=== PATIENT | female | born 1965 | race Caucasian/White ===

== ENCOUNTER 2022-03-13 03:28 | Emergency (ER) | payer SELFPAY ==
[2022-03-13 03:43] VITALS: BP 178/104; PULSE 79; RESP 16; TEMP 36.6; O2SAT 98; BMI 30.5
--- NOTE | 2022-03-13 04:15 | ED_ITS ---
HPI - General Adult General Chief complaint: High Blood Pressure Stated complaint: high blood pressure Time Seen by Provider: 03/13/22 03:58 History of Present Illness HPI narrative: 56-year-old woman presenting to the emergency department with control concern of other high blood pressures. Was seen recently in urgent care. I do review all labs and EKG of that visit all of which were unremarkable. She did have a blood pressure systolic of around 210/140 at that time. Was initiated on lisinopril. Does not have a diagnosis of diabetes and per my review of labs did not have any renal problems. Today she happened to measure blood pressure at home noting a 164 over 90s. This got her alarmed and she called in. She thinks that maybe she was over-thinking it when she was answering triaged questions that sometimes she is short of breath but she was answering that question related to a general exercise intolerance. She does have a little headache indicating this would be the usual source of her headaches. This is posterior head and sort of forehead. No visual disturbance no nausea. Has also recently developed a rash over her face. Unclear what might have caused it. Does not endorse any rheumatological or connective tissue diseases in her family. Was initiated on triamcinolone lotion. She has also had a spot behind her right knee that has been inflamed. Related Data Previous Rx's Medication Instructions Recorded lisinopril 10 mg tablet 10 mg PO QDAY 30 days #30 tabs 03/11/22 triamcinolone acetonide 0.025 % 1 applic topical BID 7 days #60 mL 03/11/22 lotion Allergies Allergy/AdvReac Type Severity Reaction Status Date / Time Penicillins Allergy Mild Itch and Verified 03/11/22 13:56 hives Review of Systems Status of ROS: Reports: 10 or more systems reviewed and unremarkable except as noted in History and below [facility] PFS Medical History Dermatitis HTN (hypertension) Social History Smoking Status: Never smoker Do you use any of these nicotine containing products: None How often do you have a drink containing alcohol: never AUDIT-C Alcohol total score: 0 Non-prescribed substance use: denies use Exam Narrative: Exam Narrative: Pleasant. Mildly anxious. Skin is warm and dry. Face in particular is generally mildly erythematous and looks tense with eyelids looking a little puffy as well. There is an oval erythematous patch in the right geniculate fossa. Little scaling here as well. Is also scaling behind her left ear consistent more with seborrhea. Cardiovascular with regular rate and rhythm no murmur rub or gallop identified. Lower extremities are without edema. She is well-perfused. Normal funduscopic exam. Lungs are clear She is quite sore to palpation about the trapezius and low neck musculature Const: Vital Signs, click to edit/add: Vital Signs - 24 hr 03/13/22 03:43 03/13/22 04:42 Temperature 97.8 F Pulse Rate [Left P ulse Oximeter] 79 66 Respiratory Rate 16 16 Blood Pressure [Ri ght Upper Arm] 178/104 H 162/99 H Pulse Oximetry 98 98 Oxygen Delivery Me thod Room Air Room Air Documenting provider has reviewed patient's vital signs: yes Course Course Hospital Course: Monitored. Blood pressures improved though still elevated. Last checked believe about 160 over just less than 100. Vital Signs Vital signs: Initial Vital Signs Temperature 97.8 F 03/13/22 03:43 Temperature Source Temporal Artery Scan 03/13/22 03:43 Pulse Rate 79 03/13/22 03:43 Respiratory Rate 16 03/13/22 03:43 Blood Pressure 178/104 H 03/13/22 03:43 Blood Pressure Mean 128 03/13/22 03:43 Blood Pressure Position Sitting 03/13/22 03:43 Pulse Oximetry 98 03/13/22 03:43 Oxygen Delivery Method 03/13/22 03:43 Vital Signs Temperature 97.8 F 03/13/22 03:43 Pulse Rate 79 03/13/22 03:43 Respiratory Rate 16 03/13/22 03:43 Blood Pressure 178/104 H 03/13/22 03:43 Pulse Oximetry 98 03/13/22 03:43 Oxygen Delivery Method 03/13/22 03:43 Temperature 97.8 F 03/13/22 03:43 Pulse Rate 66 03/13/22 04:42 Respiratory Rate 16 03/13/22 04:42 Blood Pressure 162/99 H 03/13/22 04:42 Pulse Oximetry 98 03/13/22 04:42 Oxygen Delivery Method 03/13/22 04:42 Medical Decision Making MDM Narrative Medical decision making narrative: It is not clear to me the reason for initiating lisinopril at this point. Given elevations in both diastolic and systolic numbers would consider calcium channel harish; evolving connective tissue disorder? Face almost resembles scleroderma. Would also consider simultaneous diuretic like hydrochlorothiazide or chlorthalidone. Recheck blood pressures though was 160s systolic over 90s diastolic. With recently normal labs and EKG, I do not know that further intervention is necessary. Appears relatively symptom-free beyond some anxiety here. Discharge Plan Discharge Clinical Impression: Hypertensive urgency, Elevated blood pressure reading, Dermatitis Patient Disposition: Home, Self-Care Condition: Improved Additional Instructions: Stay well-hydrated. Return for severe headache, visual disturbance, nausea/vomiting, focal weakness, discoordination. Your blood pressure readings otherwise as you measured are acceptable for a time. Follow-up as scheduled. Might ask be placed on a wait list. Prescriptions: No Action lisinopril 10 mg tablet 10 mg PO QDAY 30 Days Qty: 30 0RF triamcinolone acetonide 0.025 % lotion 1 applic topical BID 7 Days Qty: 60 0RF Follow Up/Referrals: Provider,Not a Local [Primary Care Provider] - Stand Alone Forms: [employer] Info Instructions
[2022-03-13 04:42] VITALS: BP 162/99; PULSE 66; RESP 16; O2SAT 98
== END 2022-03-13 04:42 | disposition home or self-care (01) ==
LOC: ED 04:29
PROVIDERS: Emergency Provider Family Medicine
DX: I16.0 Hypertensive urgency (principal); L30.9 Dermatitis, unspecified
CPT/HCPCS: 99283

== ENCOUNTER 2022-05-12 13:19 | Outpatient (CLI) | payer SELFPAY ==
[2022-05-12 22:22] LABS: Albumin* 4.5 g/dL (3.3-5.0); Chloride* 102 mmol/L (96-114); Sodium* 138 mmol/L (135-149)
[2022-05-12 22:23] LABS: Potassium* 4.5 mmol/L (3.6-5.1)
[2022-05-12 22:24] LABS: Cholesterol* 225 mg/dL (90-199)
[2022-05-12 22:25] LABS: Alkaline Phosphatase* 117 U/L (40-150); Aspartate Amino Transferase* 34 U/L (12-35); Bilirubin Total* 0.7 mg/dL (0.1-1.5); Blood Urea Nitrogen* 16 mg/dL (7-30); Carbon Dioxide* 28 mmol/L (20-32); Creatinine* 0.6 mg/dL (0.5-1.5); Estimated Glomerular Filt Rate 107 ml/min; Glucose* 96 mg/dL (60-115); Total Protein* 7.4 g/dL (6.0-8.3)
[2022-05-12 22:26] LABS: Alanine Aminotransferase* 44 U/L (4-35); Calcium* 9.9 mg/dL (8.4-10.6); HDL Cholesterol* 59 mg/dL (>=50); LDL Cholesterol Calculated 105 mg/dL (<100); Triglycerides* 303 mg/dL (40-149)
[2022-05-12 23:13] LABS: Hepatitis C Virus Antibody* Negative (Negative); Vitamin B12* 752 pg/mL (243-894)
[2022-05-14 21:31] LABS: Folate, Serum >22.3 ng/mL (>=5.9)
== END 2022-05-12 13:20 | disposition home or self-care (01) ==
PROVIDERS: Visit Provider Family Medicine
DX: Z00.00 Encounter for general adult medical examination without abnormal findings (principal); I10 Essential (primary) hypertension; G62.9 Polyneuropathy, unspecified; Z11.59 Encounter for screening for other viral diseases; Z13.6 Encounter for screening for cardiovascular disorders
CPT/HCPCS: 80053; 80061; 82607; 82746; 86803

== ENCOUNTER 2022-10-29 16:30 | Outpatient (CLI) | payer SELFPAY | END 2022-10-29 16:31 | disposition home or self-care (01) | LOC: NFLDREF 11-02 06:18 | PROVIDERS: Visit Provider Nurse Practitioner Family | DX: R30.0 Dysuria (principal); N89.8 Other specified noninflammatory disorders of vagina | CPT/HCPCS: 87086 ==

== ENCOUNTER 2023-11-24 07:26 | Outpatient (CLI) | payer OTHER, SELFPAY | END 2023-11-24 07:27 | disposition home or self-care (01) | PROVIDERS: PCP Family Medicine; Visit Provider Family Medicine | DX: Z00.00 Encounter for general adult medical examination without abnormal findings (principal); E78.5 Hyperlipidemia, unspecified; I10 Essential (primary) hypertension; Z13.1 Encounter for screening for diabetes mellitus; Z13.6 Encounter for screening for cardiovascular disorders | CPT/HCPCS: 80053; 80061; 82043; 82570 ==